=== PATIENT | male | born 2005 | race Caucasian/White ===

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

== ENCOUNTER 2025-02-11 15:12 | Emergency (ER) | payer BC, SELFPAY ==
[2025-02-11 15:18] VITALS: BP 134/77; PULSE 92; RESP 18; TEMP 36.9; O2SAT 100
--- NOTE | 2025-02-11 15:31 | ED.URI ---
HPI - URI/Sore Throat General Chief Complaint: Upper Respiratory Infection Stated Complaint: Cough/Body Aches/Headache Time Seen by Provider: 02/11/25 15:31 Source: patient Mode of arrival: ambulatory Limitations: no limitations History of Present Illness HPI Narrative: 19-year-old male presents with complaint of nasal congestion, postnasal drainage, sore throat, chest congestion, coughing for the past 3 weeks. Reports that last week symptoms were somewhat better but not completely gone. Over the last 2 days has had a lot of congestion, fatigue, body aches. Not taking any [id number]-[id number] medications to treat symptoms. Denies nausea vomiting diarrhea. No chest pain shortness. All systems reviewed and negative except as noted above. Related Data Allergies Allergy/AdvReac Type Severity Reaction Status Date / Time No Known Allergies Allergy Verified 02/11/25 15:25 Review of Systems Review of Systems: CONSTITUTIONAL: Denies fever, chills, or sweats. reports fatigue. EYES: Denies visual changes, redness, or discharge. ENT: Reports rhinorrhea, congestion, sore throat. Denies otalgia. CARDIOVASCULAR: Denies chest pain, palpitations, or edema. RESPIRATORY: reports cough. Denies dyspnea. GASTROINTESTINAL: Denies abdominal pain, nausea, vomiting, or diarrhea. GENITOURINARY: Denies dysuria or hematuria. SKIN: Denies rash or itching. MUSCULOSKELETAL: Denies back pain, joint pain . Reports myalgia. NEUROLOGIC: Denies headache, numbness, or weakness. PSYCHIATRIC: Denies anxiety or depression. All other systems reviewed are negative, except as documented in HPI. FOR[facility]LY [facility] Past Medical History Medical History Depression Fracture of phalanx of right little finger Surgical History Surgical History No history of previous surgery Family History Family History Other Family history non-contributory Social History Social History Tobacco type: e-cigarettes/vaping Alcohol intake: never Substance use: never Living arrangements: with family Occupation/Education: student Gender identity (if verbalized by the patient): Male Comments At time of signature, agree with nursing past medical, surgical, social and family history. There is no relevant family history pertinent to the presenting complaint. Exam Narrative: GENERAL: This is a well-nourished, well-developed patient, in no apparent distress. HEAD: normocephalic, atraumatic. EYES: PERRL. Sclera clear/white. Vision is grossly intact. EARS: External ears normal, auditory canals clear and without drainage, TMs normal without perforation. Hearing grossly intact. NOSE: External nose normal purulent nasal drainage, erythema and swelling to bilateral nares. Maxillary sinus tenderness on palpation THROAT: Mucous membranes moist, erythema with postnasal drainage NECK: Neck supple, non-tender without lymphadenopathy, masses or thyromegaly. CARDIOVASCULAR: Regular rate and rhythm without murmurs, gallops, or rubs. RESPIRATORY: Clear to auscultation. Breath sounds equal bilaterally. No wheezes, rales, or rhonchi. SKIN: warm, Dry, intact with no suspicious lesions or rash, good texture and turgor. NEURO: awake, alert, and oriented to person, place and time. There were no obvious focal neurologic abnormalities. EXTREMITIES: No joint tenderness, effusion, or edema noted. Course Course Level of Care: Express Care Visit Vital Signs Vital signs: Vital Signs Temperature 36.9 C 02/11/25 15:18 Pulse Rate 92 02/11/25 15:18 Respiratory Rate 18 02/11/25 15:18 Blood Pressure 134/77 02/11/25 15:18 Pulse Oximetry 100 02/11/25 15:18 Oxygen Delivery Room Air 02/11/25 15:18 Temperature 36.9 C 02/11/25 15:18 Pulse Rate 92 02/11/25 15:18 Respiratory Rate 18 02/11/25 15:18 Blood Pressure 134/77 02/11/25 15:18 Pulse Oximetry 100 02/11/25 15:18 Oxygen Delivery Room Air 02/11/25 15:18 reviewed MDM - URI/Sore Throat MDM Narrative Medical decision making narrative: will treat patient for bacterial sinusitis due to duration of symptoms and exam findings. Patient agrees with plan of care. Patient is alert, nontoxic. Differential Diagnosis Differential diagnosis: Likely upper respiratory infection, sinusitis, viral infection and pharyngitis Lab Data Labs: Lab Results 02/11/25 02/11/25 Range/Units 15:30 15:31 POC Grp A Strep Screen Negative Negative (Negative) Discharge Plan Discharge Clinical Impression: Acute bacterial sinusitis Patient Disposition: Home Condition: Stable Instructions: Antibiotic Form, Sinusitis (ED) Additional Instructions: your strep test was negative today. Take medications as prescribed. take Tylenol or ibuprofen every 6-8 hours as needed for pain and fever. Drink at least 64 oz of water a day. See your doctor if symptoms are not improving. Patient Language: Romansh Prescriptions: New benzonatate 200 mg capsule 200 mg PO TID PRN (Reason: cough) Qty: 20 0RF methylprednisolone [Medrol (Sukhi)] 4 mg tablets,dose pack See Rx Instructions PO .COMPLEX Qty: 21 0RF Rx Instructions: orally per package directions Claritin-D 12 Hour 5-120 mg tablet extended release 12 hr 1 tablet PO Q12H PRN (Reason: congestion) Qty: 20 0RF amoxicillin-pot clavulanate 875-125 mg tablet 1 tablet PO Q12H 7 Days Qty: 14 0RF Follow-up/Referrals: UNKNOWN,DOCTOR [Primary Care Provider] - Time of Disposition: 15:39
[2025-02-11 15:33] LABS: EDSTREPNEGPOS1 Negative (Negative)
[2025-02-11 15:33] LABS: EDSTREPNEGPOS1 Negative (Negative)
--- OUTSIDE RECORDS SUMMARY | 2025-02-11 17:36 | XMS_ITS | Referral Summary ---
Author Organization [facility] Address [address] [place] [address] Care Team Providers Care Building Inspector Name Role Phone No, Physician Primary Care Provider [phone] Allergies No known active allergies Medications sertraline (ZOLOFT) 50 mg tablet 04/01/2022 Active Active Problems Problem Noted Date Diagnosed Date Anxiety 04/20/2022 Mood disorder 04/20/2022 Social History Tobacco Use Types Packs/Day Years Used Date Smoking Tobacco: Never Smokeless Tobacco: Never Tobacco Cessation:Counseling Given: Not Answered Alcohol Use Standard Drinks/Week Comments Not Currently 0 (1 standard drink = 0.6 oz pur e alcohol) Sex and Gender Information Value Date Recorded Sex Assigned at Not on file Legal Sex Male 4:31 PM CDT Gender Identity Not on file Sexual Orientation Not on file Last Filed Vital Signs Vital Sign Reading Time Taken Comments Blood Pressure 123/89 11/16/2022 8:28 PM CDT Pulse 88 11/16/2022 8:28 PM CDT Temperature 36.6 C (97.9 F) 11/16/2022 8:28 PM CDT Respiratory Rate 16 11/16/2022 8:28 PM CDT Oxygen Saturation 98% 11/16/2022 8:28 PM CDT Inhaled Oxygen Concentration - - Weight 71.1 kg (156 lb 12.8 oz) 11/16/2022 8:39 PM CDT Height 190.5 cm (6' 3) 11/16/2022 8:39 PM CDT Body Mass Index 19.6 11/16/2022 8:39 PM CDT Body Mass Index Percentile 26.95% 11/16/2022 8:3 9 PM CDT Growth Chart: CDC (Boys, 2-2 0 Years) Plan of Treatment Not on file Insurance [facility] Care Teams Building Inspector Relationship Specialty Start Date End Date No, Physician PCP - General 03/14/22
--- OUTSIDE RECORDS SUMMARY | 2025-02-11 17:36 | XMS_ITS | Data Portability ---
Author Organization [facility] IRAAngelique Address [address] [place] [address] Care Team Providers Care Technical Training Instructor Name Role Phone KENNEDI RICHARDS [facility] Assessment No assessment recorded. Plan of Treatment Reminders Order Date Submit Date Provider Last Modified By Organization Details Last Modified Time Details Appointments Dental Procedure 30 2024 02:00P M DEB GALLAGHER, DMD Not available Not available Not available Lab chlamydia trachomat is + neisseria gonorrhoe ae + trichomon as vaginalis rRNA panel, CRISPIN+probe 2023 024 [facility], [address] [facility], [facility] [address], [place], [address], 08/26/2024 20:35:50 chlamydia trachomat is + neisseria gonorrhoe ae + trichomon as vaginalis rRNA panel, CRISPIN+probe 2023 024 [facility], [address] [facility], [facility] [address], [place], [address], 07/25/2024 06:37:24 HIV 1 + 2, meaningfu l use set 2023 024 [facility], [address] [facility], [facility], [place], [address], 07/25/2024 06:37:27 HBsAg (hepatiti s B surface Ag), EIA, serum 2023 024 [facility], [address] [facility], [facility] [address], [place], [address], 07/25/2024 06:37:25 RPR (rapid plasma reagin), serum 2023 024 [facility], [address], [place], [address], 07/25/2024 06:37:26 Hepatitis C IgG Ab, qual, serum 2023 024 [facility], [address], [place], [address], 07/25/2024 06:37:22 lipid panel, serum 2023 024 [facility], [address], [place], [address], 07/24/2024 03:36:50 CMP, serum or plasma 2023 024 [facility], [address], [place], [address], 07/24/2024 03:36:51 CBC 2023 024 [facility], [address], [place], [address], 07/24/2024 03:36:53 HIV 1 + 2, meaningfu l use set 2022 023 [facility], [address], [place], [address], 03/26/2023 20:41:24 hepatitis B surface Ab, qualitati ve, serum 2022 023 [facility], [address], [place], [address], 03/26/2023 20:41:22 HBsAg (hepatiti s B surface Ag), EIA, serum 2022 023 [facility], [address], [place], [address], 03/26/2023 20:41:23 RPR (rapid plasma reagin), serum 2022 023 [facility], [address] [facility], [facility], [place], [address], 03/26/2023 20:41:23 Hepatitis C IgG Ab, qual, serum 2022 023 [facility], [address] [facility], [facility] [address], [place], [address], 03/26/2023 20:41:21 trichomon as vaginalis RNA 2022 023 [facility], [address] [facility], [facility] [address], [place], [address], 03/26/2023 20:41:22 Referral None recorded. Procedures None recorded. Surgeries None recorded. Imaging XR, femur, 2 or more view - history of XR femur in 2019 that was read as broad-bas ed sessile osteochon droma of the distal femur; was referred to peds ortho at [facility] but patient does not recall seeing specialis t 2023 024 [facility] [place] [facility] Scheduling, [address] [facility] , [place], [address], 09/12/2024 23:51:20 Medication Orders doxycycli ne hyclate 100 mg tablet [facility]23 [facility]24 [id number], [address], [place], [place], [id number], 08/25/2024 11:30:17 Patient TargetsNo targets recorded. Patient Instructions Encounter Date Encounter Id Patient Instructions Last Modified By Organization Details Last Modified Time 03/23/2023 [id number] Well Visit, Teens: Care Instructions [email or web address] Not available 03/23/2023 11:11:02 07/23/2024 [id number] A healthy lifestyle: care instructions [email or web address] Not available 07/23/2024 11:46:29 Reason for Referral None Reported. Results Created Date Observation Date Name Description Value Unit Range Abnormal Flag Note LastModifiedBy Organization Detail LastModifiedTime 03/23/202023 HCV ANTIB BRANDON RFX TO QUANT PCR HCV Ab Non Reacti ve nonrea ctive Not Available [facility] ([facility]) [address] [place], [address], 03/26/2023 20:41:21 03/23/20 23 03/26/2023 TRICH VAG BY CRISPIN trich vag by CRISPIN Negati ve negati ve Not Available [facility] ([facility]) [address] [facility], [place], [address], 03/26/2023 20:41:21 03/23/20 23 03/24/2023 HEP B SURFA CE AB, QUAL hep B surface Ab, qual Non Reacti ve Non React brady: Incon siste nt with immun ity, less than 10 mIU/m L React brady: Consi stent with immun ity, great er than 9.9 mIU/m L Not Available [facility] ([facility]) [address] [facility], [place], [address], 03/26/2023 20:41:22 03/23/20 23 03/24/2023 HBSAG SCREE N HBsAg screen Negati ve negati ve Not Available [facility] ([facility]) [address] [place], [address], 03/26/2023 20:41:23 03/23/20 23 03/24/2023 RPR, RFX QN RPR/C ONFIR M TP RPR Non Reacti ve nonrea ctive Not Available [facility] ([facility]) [address] [place], [address], 03/26/2023 20:41:23 03/23/20 23 03/24/2023 HIV AB/P2 4 AG WITH REFLE X HIV Ab/P24 Ag screen Non Reacti ve nonrea ctive HIV Negat brady HIV-1 /HIV- 2 antib odies and HIV-1 p24 antig en were NOT detec franc. There is no labor atory evide nce of HIV infec tion. Not Available [facility] ([facility]) [address] [facility], [place], [address], 03/26/2023 20:41:24 03/23/20 23 03/24/2023 INTER PRETA TION: interpretati on: Commen t Not infec franc with HCV unles s early or acute infec tion is suspe cted (whic h may be delay ed in an immun ocomp romis ed indiv idual ), or other evide nce exist s to indic ate HCV infec tion. Not Available [facility] ([facility]) [address] [facility], [place], [address], 03/26/2023 20:41:20 07/23/20 24 07/23/2024 LIPID PANEL cholesterol, total 175 mg/dL 100-16 9 above high normal Not Available [facility] [address] [place] [address], [address], 07/24/2024 03:36:50 07/23/20 24 07/23/2024 LIPID PANEL triglyceride s 99 mg/dL 0-89 above high normal Not Available [facility] [address] [place], [address], 07/24/2024 03:36:50 07/23/20 24 07/23/2024 LIPID PANEL HDL cholesterol 52 mg/dL 40-999 Not Available [facility] [address] [place], [address], 07/24/2024 03:36:50 07/23/20 24 07/23/2024 LIPID PANEL VLDL cholesterol kilo 20 mg/dL 5-40 Not Available [facility] Department [address] [place], [address], 07/24/2024 03:36:50 07/23/20 24 07/23/2024 LIPID PANEL LDL chol calc (rust) 117 mg/dL 0-109 above high normal Not Available [facility] [address] [place], [address], 07/24/2024 03:36:50 07/23/20 24 07/23/2024 COMP. METAB OLIC PANEL (14) glucose 103 mg/dL 70-99 above high normal Not Available [facility] [address] [place], [address], 07/24/2024 03:36:51 07/23/20 24 07/23/2024 COMP. METAB OLIC PANEL (14) BUN 11 mg/dL 6-20 Not Available [facility] [address] [place], [address], 07/24/2024 03:36:51 07/23/20 24 07/23/2024 COMP. METAB OLIC PANEL (14) creatinine 0.87 mg/dL 0.76-1 .27 Not Available [facility] [address] [place] [address], [address], 07/24/2024 03:36:51 07/23/20 24 07/23/2024 COMP. METAB OLIC PANEL (14) eGFR 128 >=60 Units for eGFR value s are mL/mi n/1.7 3 The eGFR Calcu latio n has not been valid ated for patie nts under the age of 18. If test resul ts are displ ayed for a patie nt under the age of 18, disre dante that value . Not Available [facility] [address] [place] [address], [address], 07/24/2024 03:36:51 07/23/20 24 07/23/2024 COMP. METAB OLIC PANEL (14) BUN/creatini ne ratio 12 9-20 Not Available [facility] Department [address] [place], [address], 07/24/2024 03:36:51 07/23/20 24 07/23/2024 COMP. METAB OLIC PANEL (14) sodium 141 mmol/ L 134-14 4 Not Available [facility] [address] [place], [address], 07/24/2024 03:36:51 07/23/20 24 07/23/2024 COMP. METAB OLIC PANEL (14) potassium 4.5 mmol/ L 3.5-5. 2 Not Available [facility] [address] [place], [address], 07/24/2024 03:36:51 07/23/20 24 07/23/2024 COMP. METAB OLIC PANEL (14) chloride 103 mmol/ L 96-106 Not Available [facility] [address] [place], [address], 07/24/2024 03:36:51 07/23/20 24 07/23/2024 COMP. METAB OLIC PANEL (14) carbon dioxide, total 24 mmol/ L 20-29 Not Available [facility] [address] [place] [address], [address], 07/24/2024 03:36:51 07/23/20 24 07/23/2024 COMP. METAB OLIC PANEL (14) calcium 9.6 mg/dL 8.7-10 .2 Not Available [facility] [address] [place], [address], 07/24/2024 03:36:51 07/23/20 24 07/23/2024 COMP. METAB OLIC PANEL (14) protein, total 7.4 g/dL 6.0-8. 5 Not Available [facility] [address] [place], [address], 07/24/2024 03:36:51 07/23/20 24 07/23/2024 COMP. METAB OLIC PANEL (14) albumin 4.8 g/dL 4.3-5. 2 Not Available [facility] [address] [place], [address], 07/24/2024 03:36:51 07/23/20 24 07/23/2024 COMP. METAB OLIC PANEL (14) globulin, total 2.6 g/dL 1.5-4. 5 Not Available [facility] [address] [place] [address], [address], 07/24/2024 03:36:51 07/23/20 24 07/23/2024 COMP. METAB OLIC PANEL (14) A/G ratio 1.9 1.2-2. 2 Not Available [facility] [address] [place] [address], [address], 07/24/2024 03:36:51 07/23/20 24 07/23/2024 COMP. METAB OLIC PANEL (14) bilirubin, total 0.2 mg/dL 0.0-1. 2 Not Available [facility] [address] [place], [address], 07/24/2024 03:36:51 07/23/20 24 07/23/2024 COMP. METAB OLIC PANEL (14) alkaline phosphatase 109 IU/L 51-125 Not Available [facility] [address] [place] [address], [address], 07/24/2024 03:36:51 07/23/20 24 07/23/2024 COMP. METAB OLIC PANEL (14) AST (SGOT) 17 IU/L 0-40 Not Available [facility] [address] [place] [address], [address], 07/24/2024 03:36:51 07/23/20 24 07/23/2024 COMP. METAB OLIC PANEL (14) ALT (SGPT) 21 IU/L 0-44 Not Available [facility] [address] [place] [address], [address], 07/24/2024 03:36:51 07/23/20 24 07/23/2024 CBC, PLATE LET, NO DIFFE RENTI AL WBC 8.0 x10e3 /uL 3.4-10 .8 Eff ectiv e Decem lorena 2023 profi rashid [id number] WBC will be made* * non-o rdera ble as a stand -parrish e order code. Not Available [facility] [address] [place] [address], [address], 07/24/2024 03:36:53 07/23/20 24 07/23/2024 CBC, PLATE LET, NO DIFFE RENTI AL RBC 4.87 x10e6 /uL 4.14-5 .80 Not Available [facility] [address] [place], [address], 07/24/2024 03:36:53 07/23/20 24 07/23/2024 CBC, PLATE LET, NO DIFFE RENTI AL hemoglobin 14.8 g/dL 13.0-1 7.7 Not Available [facility] [address] [place] [address], [address], 07/24/2024 03:36:53 07/23/20 24 07/23/2024 CBC, PLATE LET, NO DIFFE RENTI AL hematocrit 42.6 % 37.5-5 1.0 Not Available [facility] [address] [place], [address], 07/24/2024 03:36:53 07/23/20 24 07/23/2024 CBC, PLATE LET, NO DIFFE RENTI AL MCV 88 fL 79-97 Not Available [facility] [address] [place], [address], 07/24/2024 03:36:53 07/23/20 24 07/23/2024 CBC, PLATE LET, NO DIFFE RENTI AL MCH 30.4 pg 26.6-3 3.0 Not Available [facility] [address] [place], [address], 07/24/2024 03:36:53 07/23/20 24 07/23/2024 CBC, PLATE LET, NO DIFFE RENTI AL MCHC 34.7 g/dL 31.5-3 5.7 Not Available [facility] [address] [place], [address], 07/24/2024 03:36:53 07/23/20 24 07/23/2024 CBC, PLATE LET, NO DIFFE RENTI AL RDW 12.2 % 11.5-1 4.5 Not Available [facility] [address] [place], [address], 07/24/2024 03:36:53 07/23/20 24 07/23/2024 CBC, PLATE LET, NO DIFFE RENTI AL platelets 264 x10e3 /uL 150-45 0 Mean Plate let Volum e 11.4 fL 8.9-1 2.7 N Not Available [facility] [address] [place], [address], 07/24/2024 03:36:53 07/23/20 24 07/23/2024 CBC, PLATE LET, NO DIFFE RENTI AL NRBC 0 % 0-0 Not Available [facility] [address] [place], [address], 07/24/2024 03:36:53 07/23/20 24 07/24/2024 INTER PRETA TION: interpretati on: Commen t Not infec franc with HCV unles s early or acute infec tion is suspe cted (whic h may be delay ed in an immun ocomp romis ed indiv idual ), or other evide nce exist s to indic ate HCV infec tion. Not Available [facility] ([facility]) [address] [facility], [place], [address], 07/25/2024 06:37:22 07/23/20 24 07/24/2024 HCV ANTIB BRANDON RFX TO QUANT PCR HCV Ab NON REACTI VE nonrea ctive Not Available [facility] ([facility]) [address] [facility], [place], [address], 07/25/2024 06:37:22 07/23/20 24 07/25/2024 CT, NG, TRICH VAG BY CRISPIN chlamydia by CRISPIN POSITI VE negati ve abnormal Not Available [facility] ([facility]) [address] [place], [address], 07/25/2024 06:37:24 07/23/20 24 07/25/2024 CT, NG, TRICH VAG BY CRISPIN gonococcus by CRISPIN NEGATI VE negati ve Not Available [facility] ([facility]) [address] [place], [address], 07/25/2024 06:37:24 07/23/20 24 07/25/2024 CT, NG, TRICH VAG BY CRISPIN trich vag by CRISPIN NEGATI VE negati ve Not Available [facility] ([facility]) [address] [facility], [place], [address], 07/25/2024 06:37:24 07/23/20 24 07/24/2024 HBSAG SCREE N HBsAg screen NEGATI VE negati ve Not Available [facility] ([facility]) [address] [place], [address], 07/25/2024 06:37:25 07/23/20 24 07/24/2024 RPR, RFX QN RPR/C ONFIR M TP RPR NON REACTI VE nonrea ctive Not Available [facility] ([facility]) [address] [place], [address], 07/25/2024 06:37:26 07/23/20 24 07/24/2024 HIV AB/P2 4 AG WITH REFLE X HIV Ab/P24 Ag screen NON REACTI VE nonrea ctive HIV-1 /HIV- 2 antib odies and HIV-1 p24 antig en were NOT detec franc. There is no labor atory evide nce of HIV infec tion. HIV Negat brady Not Available [facility] ([facility]) [address] [place], [address], 07/25/2024 06:37:27 08/25/20 08/26/2024 CT, NG, TRICH VAG BY CRISPIN chlamydia by CRISPIN NEGATI VE negati ve Not Available [facility] ([facility]) [address] [facility], [place], [address], 08/26/2024 20:35:50 08/25/20 24 08/26/2024 CT, NG, TRICH VAG BY CRISPIN gonococcus by CRISPIN NEGATI VE negati ve Not Available [facility] ([facility]) [address] [place], [address], 08/26/2024 20:35:50 08/25/20 24 08/26/2024 CT, NG, TRICH VAG BY CRISPIN trich vag by CRISPIN NEGATI VE negati ve Not Available [facility] ([facility]) [address] [facility], [place], [address], 08/26/2024 20:35:50 09/12/19 25 09/11/2024 XR, femur , 2 or more view No observ ation record ed. [address], [address], 01/16/2025 10:10:45 Result Notes None recorded. 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 Not on medicine s for mood disorder currentl y, not seeing therapis t. Patient or mom do not know what medicine s he used to be on. 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 XR femur, 2019: broad-ba sed sessile osteocho ndroma (noted on historic [place] [facility] [place]) KENNEDI RICHARDS MD Attn: Bart soto,[address] [facility], [place], [address], [place] [facility] 4 13:01:47 Hepatiti s B non-immu ne 856214276 Active 2023 KENNEDI RICHARDS MD Attn: Bart soto,[address] [facility], [place], [address], [place] [facility] 4 13:01:54 Elevated blood-pr essure reading without diagnosi s of hyperten guera 560459376 Completed 202308/25/2024 KENNEDI RICHARDS MD Attn: Bart soto,[address] [facility], [place], [address], [place] [facility] 4 11:44:18 Problem Notes None recorded. Procedures Surgical History Date Name Laterality Status Provider Name and Address Organization Details Recorded Time 6 circumcision completed [facility] 03/23/2023 10:33:46 Imaging Results None recorded. Procedure Notes None recorded. Medical Equipment None Reported. Allergies No known drug allergies Medications Name Sig Start Date Stop Date Status Note LastModified by Organization Details LastModified Time clonidine 0.01mg/ml susp 03/23 completed Not Available Not Available Not Available venlafaxine ER 75 mg capsule,ext ended release 24 hr 03/23 completed Not Available Not Available Not Available clonidine HCl 0.2 mg tablet 03/23 completed Not Available Not Available Not Available lithium carbonate 300 mg capsule TAKE ONE CAPSULE BY MOUTH TWICE DAILY FOR DISRUPTIV E MOOD DYSREGULA TION DISORDER 03/23 completed Not Available Not Available Not Available hydroxyzine HCl 10 mg tablet TAKE 1 TABLET BY MOUTH TWICE DAILY FOR ANXIETY 03/23 completed Not Available Not Available Not Available ondansetron 4 mg disintegrat ing tablet DISSOLVE 1 TABLET ON THE TONGUE EVERY 6 HOURS NEEDED FOR NAUSEA OR VOMITING 07/23 completed Not Available Not Available Not Available sertraline 50 mg tablet 03/23 completed Not Available Not Available Not Available doxycycline hyclate 100 mg tablet 08/25 completed Not Available Not Available Not Available Vitals Date Recorded Body weight Body mass index (BMI) Percentile per age and sex Body mass index (BMI) Body height Body temperature Oxygen saturation Oxygen saturation in Arterial blood by Pulse oximetry Heart rate Systolic blood pressure Diastolic blood pressure Provider Name and Address Organization Details Last Updated DateTime 3 39808.6 6 g 50 % 21.4 kg/m2 185.42 cm 97.3 [degF] 97 % 97 % 64 /min 120 mm[Hg] 88 mm[Hg] Kenya Reaves [place] [facility] 3 10:26:56 Date Recorded Body height Body mass index (BMI) Percentile per age and sex Body mass index (BMI) Body weight Heart rate Body temperature Respiratory rate Oxygen saturation Oxygen saturation in Arterial blood by Pulse oximetry Systolic blood pressure Diastolic blood pressure Systolic blood pressure Diastolic blood pressure Provider Name and Address Organization Details Last Updated DateTime 4 187.33 cm 61 % 23.1 kg/m2 52523.2 4 g 74 /min 97.8 [degF] 16 /min 98 % 98 % 137 mm[Hg] 84 mm[Hg] 144 mm[Hg] 79 mm[Hg] Tressa Cohen MA [facility] 4 12:04:35 Date Recorded Body height Body mass index (BMI) Percentile per age and sex Body mass index (BMI) Body weight Oxygen saturation Oxygen saturation in Arterial blood by Pulse oximetry Heart rate Respiratory rate Body temperature Systolic blood pressure Diastolic blood pressure Provider Name and Address Organization Details Last Updated DateTime 4 187.33 cm 64 % 23.4 kg/m2 98526.3 g 98 % 98 % 66 /min 16 /min 97.6 [degF] 126 mm[Hg] 79 mm[Hg] Elizabeth Villegas MA [facility] 4 11:32:44 Social History Question Answer Notes LastModified by Organizat ion Details LastModified Time Tobacco Smoking Status Never Smoker Kenya OsceolaYUMIKO vaughn [facility], [place] - [facility] 03/23/2023 10:31:23 Are You Blind Or Do You Have Difficulty Seeing? No Information not available 03/23/2023 What Is Your Level Of Caffeine Consumption? Occasional Coffee Sometimes Information not available 07/23/2024 In The 14 Days Before Symptom Onset, Have You Had Close Contact With A Laboratory-confi rmed COVID-19 While That Case Was Ill? No Information not available 03/23/2023 In The 14 Days Before Symptom Onset, Have You Had Close Contact With A Person Who Is Under Investigation For COVID-19 While That Person Was Ill? No Information not available 03/23/2023 Have You Been To An Area Known To Be High Risk For COVID-19? No Information not available 03/23/2023 Are You Deaf Or Do You Have Serious Difficulty Hearing? No Information not available 03/23/2023 What Type Of Diet Are You Following? REGULAR Information not available 03/23/2023 Are There Any Guns Present In Your Home? Yes Information not available 03/23/2023 What Is Your Home Situation? Mother 03/23/23 Step Dad And Sister Information not available 03/23/2023 What Was The Date Of Your Most Recent Tobacco Screening? 08/25/2024 Information not available 08/25/2024 How Many Children Do You Have? 0 Information not available 03/23/2023 Do You Use Protection During Sex? No Information not available 03/23/2023 What Is Your Relationship Status? Single Information not available 03/23/2023 Do You Use Your Seat Belt Or Car Seat Routinely? Yes Information not available 07/23/2024 Are You Sexually Active? Yes Information not available 03/23/2023 Do You Have Smoke And Carbon Monoxide Detectors In Your Home? Yes Information not available 03/23/2023 Are You Passively Exposed To Smoke? Yes Information not available 03/23/2023 Do You Use Sunscreen Routinely? No Information not available 03/23/2023 Has Tobacco Cessation Counseling Been Provided? Yes Information not available 03/23/2023 On What Date Was Tobacco Cessation Counseling Provided? 08/25/2024 Information not available 08/25/2024 How Many Years Have You Used E-cigarettes Or Vape? 2 Information not available 03/23/2023 Sex: Male Functional Status Question Answer Note LastModified by Organizat ion Details LastModified Time Do you use any illicit or recreational drugs? Yes marijuanna Information not available 07/23/2024 Do you or have you ever used any other forms of tobacco or nicotine? Yes Information not available 03/23/2023 What is your level of alcohol consumption? None Information not available 03/23/2023 Do you or have you ever used smokeless tobacco? Never used smokeless tobacco Information not available 03/23/2023 Are you currently employed? Yes 07/23/24 Information not available 07/23/2024 Are you able to care for yourself? Yes Information not available 03/23/2023 What is your occupation? [employer] Information not available 07/23/2024 Do you or have you ever used e-cigarettes or vape? Current user of electronic cigarettes Information not available 03/23/2023 What is your exercise level? None Information not available 03/23/2023 Mental Status Question Answer Note LastModified by Organizat ion Details LastModified Time Do you feel stressed (tense, restless, nervous, or anxious, or unable to sleep at night)? [id number] Some nights pt cannot fall asleep 07/23/24 Information not available 07/23/2024 Family History Relationship Description Onset Age of this Age Resolved Age Notes LastModified by Organization Details LastModified Time Mother Hypertensive disorder [email or web address] Not available 03/23 10:30:21 Maternal Grandmother Hypertensive disorder [email or web address] Not available 03/23 10:30:21 Medical History Condition Response Coronary Artery Disease N Other N High Blood Pressure N Atrial Fibrillation N Thyroid Problems N Kidney or Bladder Problems N GI Problems N Depression Y COPD N Blood Clots N Skin Problems N Eating Disorder N Anemia N Heart Attack ([place]) N Anxiety Disorder Y Diabetes N Muscle, Joint, or Bone Problems N Seizures/Epilepsy N Acid Reflux (GERD) N Cancer N Stroke N Asthma N Allergies N ADHD Y Substance Abuse N High Cholesterol N Hepatitis N Liver Disease N Schizophrenia N Headaches N Heart Failure N Osteoporosis N Immunizations Vaccine Type Date Status Note Provider Nam e and Address Organization Details Recorded Time DTaP, unspecified formulation 6 completed Kenya Re[place], [place] [facility] 03/23/2023 10:53:22 DTaP, unspecified formulation 6 completed [place] Re[place] [facility] 03/23/2023 10:53:32 DTaP, unspecified formulation 6 completed [place] [facility] 03/23/2023 10:53:45 pneumococcal conjugate PCV 7 6 completed [place] Re[place] [facility] 03/23/2023 10:57:29 pneumococcal conjugate PCV 7 6 completed [place] [facility] 03/23/2023 10:57:37 pneumococcal conjugate PCV 7 6 completed [place] Re[place] [facility] 03/23/2023 10:57:47 DTaP, unspecified formulation 7 completed [place] [facility] 04/02/2023 10:10:08 DTaP, unspecified formulation 0 completed [place] [facility] 04/02/2023 10:10:19 influenza, unspecified formulation 1 completed [place] [facility] 04/02/2023 10:12:07 influenza, unspecified formulation 9 completed [place] [facility] 04/02/2023 10:12:18 Hep A, pediatric, unspecified formulation 8 completed [place] [facility] 04/02/2023 10:12:54 Hep A, pediatric, unspecified formulation 7 completed [place] Re[place] [facility] 04/02/2023 10:13:10 HPV9 9 completed [place] [facility] 04/02/2023 10:14:53 HPV9 7 completed [place] [facility] 04/02/2023 10:15:06 influenza, unspecified formulation 3 completed [place] [facility] 04/02/2023 10:16:19 influenza, unspecified formulation 7 completed [place] [facility] 04/02/2023 10:16:36 influenza, unspecified formulation 7 completed [place] [facility] 04/02/2023 10:16:52 meningococcal MCV4P 7 completed [place] [facility] 04/02/2023 10:18:00 MMR 0 completed [place] [facility] 04/02/2023 10:18:41 MMR 7 completed [place] [facility] 04/02/2023 10:18:52 IPV 0 completed [place] [facility] 04/02/2023 10:23:44 IPV 7 completed [place] [facility] 04/02/2023 10:23:52 IPV 6 completed KENNEDI RICHARDS MD Attn: Accounting,[address] [place], [address], [place] [facility] 07/23/2024 11:15:01 IPV 6 completed KENNEDI RICHARDS MD Attn: Accounting,[address] [facility], [place], [address], [place] [facility] 07/23/2024 11:15:01 Tdap 7 completed [place] [facility] 04/02/2023 10:25:17 Hib (PRP-T) 7 completed [place] [facility] 04/06/2023 15:58:07 Hib (PRP-T) 6 completed KENNEDI RICHARDS MD Attn: Accounting,[address] [facility], [place], [place], [address] [place] [address], [place] [facility] 07/23/2024 11:15:01 Hib (PRP-T) 6 completed KENNEDI RICHARDS MD Attn: Accounting,[address] [facility], [place], [place], [address] [place] [address], [place] [facility] 07/23/2024 11:15:01 Hib (PRP-T) 6 completed KENNEDI RICHARDS MD Attn: Accounting,[address] [facility], [place], [place], [address] [place] [address], [place] [facility] 07/23/2024 11:15:01 varicella 0 completed [place] [facility] 04/06/2023 15:59:42 varicella 7 completed [place] [facility] 04/06/2023 15:59:49 Hep B, unspecified formulation 6 completed KENNEDI RICHARDS MD Attn: Accounting,[address] [facility], [place], [address] [place] [address], [place] [facility] 07/23/2024 11:15:01 Hep B, unspecified formulation 6 completed KENNEDI RICHARDS MD Attn: Accounting,[address] [facility], [place], [place], [address] [place] [address], [place] [facility] 07/23/2024 11:15:01 Hep B, unspecified formulation 6 completed KENNEDI RICHARDS MD Attn: Accounting,[address] [facility], [place], [address] [place] [address], [place] [facility] 07/23/2024 11:15:01 Hep B, adolescent or pediatric 4 completed Tressa Cohen [place] [facility] 07/23/2024 12:04:19 Past Encounters Encounter ID Performer Location Encounter Start Date Encounter Closed Date Diagnosis/Indication Diagnosis SNOMED-CT Code Diagnosis ICD10 Code Diagnosis Note [id number] MD Martín BUSH (BRAND INSPECTOR) [address] [place] [address] 03/23/2023 10:10:59 03/26/2023 13:02:16 History of chlamydial infection 076974820 Z86.19 - Currently being treated for chlamydia; continue treatment as prescribed - f/u STI labs and treat as indicated by results- Advised patient of importance of consistent condom use to prevent STIs in the future- Recommende d patient discuss reliable control with girlfriend to prevent future Well child visit 1950298 [id number] Z00.129 - Discussed healthy behaviors (diet and physical activity), STI and prevention Mood disorder [id number] F 39 - Unclear previous diagnosis but was admitted to psychiatry within past year for suicide attempt by overdose- Not on medication s; not seeing therapist- Patient and mother not sure of previous medication s prescribed [id number] MD Martín BUSH (BRAND INSPECTOR) [address] [place] [address] 07/23/2024 11:09:25 07/28/2024 11:45:18 Adult health examination 603021266 Z00.00 - Reviewed risks for cardiovasc ular disease, infection, and cancer; ordered screening tests as appropriat e- Recommende d annual flu vaccine and updated [id number] COVID vaccine History of chlamydial infection 032712343 Z86.19 Z72.51 Z11.3 - Treated for chlamydia in 2022. States his current girlfriend has chlamydia. 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 Dose #1 given 07/23/24. RTC in 1 month for dose #2 and in 6 months for dose #3. Positive s creening for depression on PHQ-9 (Patient Health Questionnaire 9) [id number] 19754 Z13.31 - Positive PHQ-9 with negative PHQ-2; does not meet criteria for depression Normal bod y mass index 66512707 Z68.23 - Recommende d nutritious diet Recurrent bleeding of nose 7871765054 102 R04.0 - Advised Vaseline on septal abrasion Osteochond christina of femur 617111499 D16.21 - XR femur, 2019: broad-base d sessile osteochond christina (noted on historical medical records)- Referred to peds ortho at [facility] per pediatrici an's notes (see historical medical records)- f/u repeat XR femur Elevated blood-pressure reading without diagnosis of hypertension 858781435 R03.0 - Asymptomat ic- RTC in 1 month for BP check [id number] MD Shirley BUSHhalto (BRAND INSPECTOR) [address] [place] [address] 08/25/2024 11:22:15 08/28/2024 11:45:33 History of chlamydial infection 746266670 Z86.19 Z72.51 Z11.3 - Treated for chlamydia in 2022.- 07/23/24: Empiricall y treated for exposure to chlamydia. Repeat STI testing performed and returned positive for chlamydia. - 08/25/24: Test of cure collected; will treat as indicated by results Elevated blood-pressure reading without diagnosis of hypertension 637106501 R03.0 - Resolved Health Concerns Section Related Observation LastModified by Organization Detai ls LastModified Time None Recorded Concern Status LastModified by Organization Details LastModified Time None Recorded Advance Directives Directive None Recorded Payers Encounter Date Sequence Insurance Name Policy Number Policy Goncalves Covered Member ID Goncalves Member ID Guarantor Name 03/23/2023 1 [facility] (MEDICAID REPLACEMENT - HMO) [id number] Alfredo Pickard [id number] 07/23/2024 1 [facility] (MEDICAID REPLACEMENT - HMO) [id number] Alfredo Pickard [id number] 08/25/2024 1 [facility] (MEDICAID REPLACEMENT - HMO) [id number] Alfredo Pickard [id number] Notes Date Note Type Note Provider Name and Address Organization Details Recorded Time 03/23/2023 text/html 17 year old here for well child check. Parent not present in room during history taking.- Last saw Dr. 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 RISK ASSESSMENT (confidential):- Home: Safe, peaceful home environment. Family members all get along, more or less.- Education/Employment: No problems with safety or bullying at school.- Eating: No concerns about body appearance. Typically doesn't get full meals -- usually eats at around 3 or 4 in the afternoon, eats macaroni or pizza or chips or cereal. Gets dinner sometimes; when does eat dinner, will eat chicken and potatoes. Drinks 3-4 cups of milk per day. No food allergies or intolerances. Eats in the middle of the night; will order food like chicken tenders or fries. Eats grapes, pickles, strawberries. Rarely eats fruits and veggies.- Activities: Plays video games, goes swimming or walks around. Does not have a lot of friends. Mostly hangs out with girlfriend, who recently found out she was and had .- Drugs: Vapes and uses marijuana.- Safety: No history of violent relationships at home or elsewhere.- Sex: Prefers women. Is sexually active without consistent condom use. Is currently being treated for chlamydia infection; girlfriend found out about chlamydia infection when going in for control and found out she was .- Suicidality/Mental Health: Denies physical or sexual abuse. Used to be on medications for mood disorder; does not remember what the medications were. Was in mental hospital twice and was admitted for 2 weeks about 10 months ago for suicide attempt by overdose. SOCIAL:- No TB or lead risk factors.- Plans after high school: going into [employer] IMMUNIZATIONS:- Immunization card from [place] only has vaccines listed until 07/23/2006- Will obtain updated immunization list from previous hull grinder KENNEDI RICHARDS MD Attn: Accounting,[address] , [place], [address], [facility] 03/23/2023 12:27:15 07/23/2024 text/html Annual wellnessConcerns today- New girlfriend tested positive for chlamydia at the beginning of the month. Wants to be tested and Abx for treatment; states last time that he had chlamydia, his ex-girlfriend's mom gave him Rx to treat. No fevers, chills, penile discharge, rashes. One episode of dysuria but otherwise no sx.- Has a bump on right knee that left knee does not have. Has been there for years. Old doctor years ago said something about it but doesn't know what came of that workup. No pain, no issues with feeling like knee is going to give out.- Has had more frequent nose bleeds, 3 times in the past month. Usually resolves within a minute. Cardiovascular risk- HTN: FHx in mom, maternal grandmother.- DM2: No known FHx- HLD: No known FHx- Personal history of NV, CVA? No- Family history of NV, CVA? No known FHx- AAA screening (age 65-75 years who have ever smoked)? N/A - age, never smoker Infection risk- Prior testing for HIV? Neg in 2022- Prior testing for HepC? Neg in 2022- History of STIs? chlamydia in 2022- Currently having unprotected sex? yes- Vaccines due? flu, COVID, meningococcal ACWY #2- Girlfriend uses control Cancer screenings- Unsure type of cancer that paternal uncle had- Prostate cancer: No known FHx- Colon cancer: No known FHx- Lung cancer: Never smoker KENNEDI RICHARDS MD Attn: Accounting,[address] , [place], [address], [facility] 07/23/2024 13:04:08 08/25/2024 text/html STI testing- Her e for MARKY after treatment of chlamydia- No other related concerns KENNEDI RICHARDS MD Attn: Accounting,[address] [facility], [place], [address], [facility] 08/25/2024 11:45:33
--- OUTSIDE RECORDS SUMMARY | 2025-02-11 17:36 | XMS_ITS | Clinical Summary ---
Author Organization [facility] Address [address] [place] [address] Care Team Providers Care Research Software Engineer Name Role Phone No, Physician Primary Care Provider [phone] Allergies No known active allergies Medications sertraline (ZOLOFT) 50 mg tablet 04/01/2022 Active Active Problems Problem Noted Date Diagnosed Date Anxiety 04/20/2022 Mood disorder 04/20/2022 Medical History Medical History Date Comments Anxiety Mood disorder Social History Tobacco Use Types Packs/Day Years [...] on file Sexual Orientation Not on file Obstetrics History Growth Chart Information Age Height Weight Wkflxf-fja-lfff th Percentile BMI Percentile Head Circum Head Circum Percentile Date 16 years 190.5 cm (6' 3) 71.1 kg (156 lb 12.8 oz) 26.95%* 2022 16 years 190.5 cm (6' 3) 72.6 kg (160 lb) 38.73%* 2021 16 years 188 cm (6' 2) 72.6 kg (160 lb) 47.93%* 2021 * CDC (Boys, 2-20 Years) Last Filed Vital Signs Vital Sign Reading [...] 11/16/2022 8:3 9 PM CDT Growth Chart: [facility] (Boys, 2-2 0 Years) Plan of Treatment Health Maintenance Due Date Last Done Comments Depression Screening 2005 Hepatitis C Screening 2005 Meningococcal B Vaccine (1 of 2 - Standard) 2021 Regular Well Visit/Exam 18-64 12/24/2023 Influenza Vaccine (Season Ended) 2025 09/22/2020, 07/10/2019, 09/16/2012, Additional history exists DTaP/Tdap/Td Vaccine (7 - Td or Tdap) 02/06/2027 02/06/2017, 02/23/2010, 05/03/2007, Additional history exists Pneumococcal vaccine <65 Completed 007, 07/23/2006, 05/23/2006, Additional history exists Varicella Vaccines Completed 02/23/2010, 0 02/06/2007, 02/06/2007 Meningococcal Vaccine Aged Out 02/06/2017 No jass jesusita eligible based on patient's age to complete this topic HPV Vaccines Completed 07/10/2019, 070 03/2019, 02/06/2017 Hepatitis B Screening Completed 07/23/2024 , 07/23/2006, 01/24/2006, Additional history exists Insurance [facility] PL[facility] [address] [employer] Care Teams Research Software Engineer Relationship Specialty Start Date End Date No, Physician PCP - General 03/14/22
--- OUTSIDE RECORDS SUMMARY | 2025-02-11 17:36 | XMS_ITS | Clinical Summary ---
Author Organization [facility] Address [address] [place] [address] Care Team Providers Care Vessel Builder Name Role Phone Elvis Reynoso MD Primary Care Provider [phone] Source Comments [facility] [employer],non-owned Affiliates and Associated Physician Practices is amultiple site organization consisting of ambulatory clinics and hospital sitesin [place], [place], [place] and [place]. This disclosure is being madepursuant to the Care Everywhere program and may not contain all information available regarding this patient. Last updated 18.[facility] [employer] Allergies No known active allergies Medications * Be aware that medications may not be up to date on this document. Alwaysverify current medications with the patient. clindamycin-luis m zoyl peroxide (BENZACLIN) 1-5 % gel Apply to affected area 2 times daily 50 g 3 07/10/2019 Active clindamycin-luis m zoyl peroxide (DUAC) 1.2-5 % gel Apply to affected area 2 times daily 45 g 4 09/22/2020 Active Active Problems Patient Care Coordination No te Formatting of this note migh t be different from the original. No Show Letter #1 sent 04/29/2019 Sent [place] Child Health Examination and Immunization record to [phone] per mom's request. Problem Noted Date Diagnosed Date Other acne 10/27/2020 WCC (well child check) 04/25/2019 Need for vaccination 04/25/2019 Screen for STD (sexually transmitted disease) Resolved Problems Problem Noted Date Diagnosed Date Resolved Date Failure to attend appointment 04/29/2019 09/22/2020 Overview (04/29/2019): No Show Letter #1 sent 04/29/2019 Injury of nose 11/25/2009 07/10/2019 Immunizations Immunization Administration Dates Next Due DTaP VACCINE IM (6wk-6yrs) 02/23/2010,,07/23/2006,05/23,02/28/2006 HEP A PEDS 2 DOSE 02/11/2008,02/06/2007 HEP B VACCINE, PED/ADOL 07/23/2006,01/24/2006, HIB-PRP-T 4 DOSE 05/03/2007, 6,05/23/2006,02/28 Human Papilloma Virus Nineva lent Vaccine 07/10/2019,02/06/2017 INFLUENZA VACCINE 09/16/2012,07/29/2007,09/24/19 07 INFLUENZA VACCINE, QUADR. (F LUZONE; FLULAVAL; FLUARIX; AFLURIA QUADRIVALENT; 6MO+), 0.5 ML (IIV4) 09/22/2020,07/10/2019 MENINGOCOCCAL ACWY (MCV4P) VAC IM 02/06/2017 MMR 02/23/2010,02/06/2007 PNEUMOCOCCAL PCV7 CONJ, PEDS 05/03/2007, 07/23/2006,05/23/2006,02/23 POLIO IPV 02/23/2010, 7,05/23/2006,02/28 TDAP (7yrs+) 02/06/2017 VARICELLA 02/23/2010,02/06/2007 Social History Tobacco Use Types Packs/Day Years Used Date Smoking Tobacco: Passive Smo ke Exposure - Never Smoker Alcohol Use Standard Drinks/Week Comments No 0 (1 standard drink = 0.6 oz pur e alcohol) Sex and Gender Information Value Date Recorded Sex Assigned at Not on file Legal Sex Male 4:19 AM BEAN WEIGHER Gender Identity Not on file Sexual Orientation Not on file Last Filed Vital Signs Vital Sign Reading Time Taken Comments Blood Pressure 124/78 09/22/2020 11:37 AM BEAN WEIGHER Pulse 93 09/22/2020 11:37 AM BEAN WEIGHER Temperature 36.8 C (98.3 F) 09/22/2020 11:37 AM BEAN WEIGHER Respiratory Rate 16 08/06/2017 11:38 AM BEAN WEIGHER Oxygen Saturation 100% 08/06/2017 11:38 AM BEAN WEIGHER Inhaled Oxygen Concentration - - Weight 66.3 kg (146 lb 2 oz) 09/22/2020 11:37 AM BEAN WEIGHER Height 185.4 cm (6' 1) 09/22/2020 11:37 AM BEAN WEIGHER Body Mass Index 19.28 09/22/2020 11:37 AM BEAN WEIGHER Body Mass Index Percentile 44.26% 09/22/2020 11: 37 AM BEAN WEIGHER Growth Chart: [facility] [place] (Boys, 2-2 0 Years) Plan of Treatment Health Maintenance Due Date Last Done Comments HIV SCREENING 2020 MENINGOCOCCAL (Group B) VACCINE SHARED DECISION-MAKING (1 of 2 - Standard) 2021 HEPATITIS C SCREENING 12/19/2023 COVID-19 VACCINE ( season) 2024 DEPRESSION SCREENING 09/03/2024 INFLUENZA VACCINE (Season Ended) 2025 09/22/2020, 07/10/2019, 09/16/2012, Additional history exists DTAP/TDAP/TD VACCINES (7 - Td or Tdap) 02/06/2027 02/06/2017, 02/23/2010, 05/03/2007, Additional history exists ZOSTER VACCINE (1 of 2) 12/24/2055 HEPATITIS B VACCINE Completed 07/23/2006, 01/24/2006, 2005 HIB VACCINE Completed 05/03/2007, 07/05, 05/23/2006, Additional history exists PNEUMOCOCCAL VACCINE Completed 05/03/2007, 07/23/2006, 05/23/2006, Additional history exists MENINGOCOCCAL GROUPS A/C/Y/W VACCINE Aged Out 02/06/2017 No longer eligible based on patient's age to complete this topic HPV VACCINE Completed 07/10/2019, 02/06/2017 Insurance [place] MEDICA[place] [employer] [facility] [place] MEDICAID [facility] PLAN [facility] MEDICAID Care Teams Vessel Builder Relationship Specialty [place] [address] [address] PCP - General 03/25/10
== END 2025-02-11 15:50 | disposition home or self-care (01) ==
PROVIDERS: Emergency Provider Nurse Practitioner Family
DX: J01.90 Acute sinusitis, unspecified (principal); F17.290 Nicotine dependence, other tobacco product, uncomplicated
CPT/HCPCS: 87081; 87880; 99213; G0463